=== PATIENT | male | born 1970 | race Caucasian/White ===

== ENCOUNTER 2020-11-09 19:43 | Emergency (ER) | payer BC, SELFPAY ==
--- NOTE | ~2020-11-09 | XR_ITS ---
XR shoulder LT min 2V DATE: 11/09/2020 20:05 INDICATION: Fall. Left shoulder injury, pain, unable to move arm TECHNIQUE: 4 views COMPARISON: None FINDINGS: Comminuted fracture the midshaft of left clavicle. Normal alignment at the, clavicular and glenohumeral joints. No other fracture or dislocation. IMPRESSION: Comminuted fracture of midshaft of left clavicle Reviewed, dictated and finalized at location A.
--- NOTE | ~2020-11-09 | XR_ITS ---
XR clavicle LT DATE: 11/09/2020 20:05 INDICATION: Fall. Unable to move arm. Left shoulder pain. TECHNIQUE: AP and angled AP views of left clavicle COMPARISON: None FINDINGS: There is a comminuted fractures of the midshaft of left clavicle with approximately 12 mm l devan intermediate fragment. There is posterior displacement of the major lateral clavicular fragment. Alignment is preserved at the acromioclavicular and glenohumeral joints. IMPRESSION: Comminuted fracture the midshaft of left clavicle Reviewed, dictated and finalized at location A.
[2020-11-09 20:10] VITALS: BP 115/76; PULSE 74; RESP 18; TEMP 36.5; O2SAT 99
--- NOTE | 2020-11-09 21:30 | ED.UPPEXIN ---
HPI - Extremity Injury (Upper) General Chief Complaint: Extremity Injury, Upper Stated Complaint: L shoulder pain, possible dislocation Time Seen by Provider: 11/09/20 21:07 History of Present Illness HPI narrative: Patient presents with left shoulder injury. Patient reports he was playing football in the backyard with his sons when he tripped and thinks he landed on something immediate pain to his left shoulder. He had a prior collarbone fracture and this feels similar to his prior event several years ago so he came in for evaluation. Reports pain is achy, constant, worse with trying to use his left shoulder, down his left arm. Denies any focal numbness or weakness not strike his head denies any loss of consciousness Related Data Home Medications Medication Instructions Recorded Confirmed acetaminophen 500 mg tablet 500 mg PO Q6H PRN 03/31/20 03/31/20 fexofenadine 60 mg tablet 60 mg PO Q12H 03/31/20 06/15/20 Allergies Allergy/AdvReac Type Severity Reaction Status Date / Time No Known Allergies Allergy Verified 11/09/20 20:38 Review of Systems Review of Systems: CONSTITUTIONAL: Denies fever, chills, or sweats. EYES: Denies visual changes, redness, or discharge. ENT: Denies rhinorrhea, congestion, sore throat, or otalgia. CARDIOVASCULAR: Denies chest pain, palpitations, or edema. RESPIRATORY: Denies cough or dyspnea. GASTROINTESTINAL: Denies abdominal pain, nausea, vomiting, or diarrhea. GENITOURINARY: Denies dysuria or hematuria. SKIN: Denies rash or itching. MUSCULOSKELETAL: Denies back pain, joint pain, or myalgia. NEUROLOGIC: Denies headache, numbness, dizziness, or weakness. PSYCHIATRIC: Denies anxiety or depression. All systems reviewed & are unremarkable except as noted in HPI and below PMFSH Family History Family History Mother Family history of thyroid disease Family history of cardiovascular disease Father Patient's father is in good health Social History Social History Smoking status: Never smoker Second hand tobacco smoke exposure: No Alcohol intake: never Gender identity (if verbalized by the patient): Male Exam Narrative: GENERAL: Well-appearing, well-nourished, and in no acute distress. HEAD: Normocephalic, atraumatic. EYES: PERRLA and EOMI. ENT: Nares clear, no rhinorrhea or epistaxis. Mucous membranes moist. NECK: Supple. No masses. No JVD EXTREMITIES: Limited range of motion to the left shoulder due to pain. There is deformity and tenderness, midshaft of the left clavicle. There is no open or draining wounds there is no blanching skin tissue. Distal extremity has good sensation strength and cap refill. There is no other focal bony tenderness on exam SKIN: Warm, dry, no rash. NEURO: No focal deficits. Alert and oriented x3. PSYCH: Normal mood and affect. Course Vital Signs Vital signs: Vital Signs Temperature 36.5 C 11/09/20 20:10 Pulse Rate 74 11/09/20 20:10 Respiratory Rate 18 11/09/20 20:10 Blood Pressure 115/76 11/09/20 20:10 Pulse Oximetry 99 11/09/20 20:10 Temperature 36.5 C 11/09/20 20:10 Pulse Rate 73 11/09/20 21:54 Respiratory Rate 16 11/09/20 21:54 Blood Pressure 118/80 11/09/20 21:54 Pulse Oximetry 98 11/09/20 21:54 MDM - Extremity Injury (Upper) MDM Narrative Medical decision making narrative: H&P as above, vss, pt looks clinically well, exam without neurovascular compromise that extremity or compromise of the skin, labs imaging concern for clavicular fracture, additional labs/img considered, symptomatic relief available as needed, on reevaluation pt continues to looks clinically well. Suspect isolated clavicular fracture, dns neurovascular compromise, pneumothorax. plan to tx/monitor as op w/ Ortho f/u findings/plan discussed with pt, pt agree/comfortable with plan, return precautions given. Case discussed br
[2020-11-09 21:54] VITALS: BP 118/80; PULSE 73; RESP 16; O2SAT 98
== END 2020-11-09 21:56 | disposition home or self-care (01) ==
PROVIDERS: Emergency Provider Emergency Medicine; PCP Physician Assistant
DX: S42.022A Displaced fracture of shaft of left clavicle, initial encounter for closed fracture (principal); W01.10XA Fall on same level from slipping, tripping and stumbling with subsequent striking against unspecified object, initial encounter; Y93.61 Activity, american tackle football
CPT/HCPCS: 73000; 73030; 99284

== ENCOUNTER → 2021-01-19 10:58 | Outpatient (CLI) | payer BC, SELFPAY ==
--- NOTE | ~2021-01-19 | MR_ITS ---
EXAMINATION: MR shoulder LT wo con DATE: 01/19/2021 11:38 INDICATION: Left shoulder pain. TECHNIQUE: Magnetic resonance imaging (MRI) of the left shoulder was performed without intravenous co ntrast. Sequences included axial PD-weighted FS FSE, coronal oblique PD-weighted FS FSE and T2-weight ed FS FSE, and sagittal oblique T2-weighted FS FSE and T1-weighted FSE. COMPARISON: Left shoulder radiographs 01/09/2021 FINDINGS: Coracoacromial arch: The acromion undersurface is curved in morphology (type II). There is an old fracture of middle third of left clavicle. There is mild acromioclavicular joint osteoarthritis. There is mild subacromial/iqbal bdeltoid bursitis. Rotator cuff: There is severe supraspinatus and infraspinatus tendinopathy. Teres minor tendon is normal. Subscapul sharon tendon is normal. No tear. There is no asymmetric fatty atrophy of the rotator cuff muscle ethan es. Biceps tendon and glenoid labrum: Biceps tendon is in bicipital groove. Intra-articular biceps tendon is normal. There is a tear of sup erior labrum from 10:00 to 12:00 (SLAP tear). There is a sublabral foramen anterosuperiorly, a normal variant. Middle glenohumeral ligament is thickened, a normal variant. Fluid: There is a small glenohumeral joint effusion. Bones/cartilage: Glenoid cartilage is normal. Humeral head cartilage is normal. IMPRESSION: 1. Severe rotator cuff tendinopathy. No tear. 2. SLAP tear. 3. Mild acromioclavicular joint osteoarthritis. 4. Small glenohumeral joint effusion. 5. Mild subacromial/subdeltoid bursitis. Reviewed, dictated and finalized at location A.
== END ==
PROVIDERS: Visit Provider Orthopaedic Surgery
DX: M19.012 Primary osteoarthritis, left shoulder (principal); M25.412 Effusion, left shoulder; M75.52 Bursitis of left shoulder; S43.432A Superior glenoid labrum lesion of left shoulder, initial encounter; X58.XXXA Exposure to other specified factors, initial encounter
CPT/HCPCS: 73221